=== PATIENT | female | born 1980 | race Caucasian/White ===

== ENCOUNTER → 2020-07-26 | Outpatient (CLI) | payer SELFPAY ==
[2020-07-26 11:16] VITALS: BMI 32.5
== END | disposition home or self-care (01) ==
LOC: LABSPEC 13:24
PROVIDERS: PCP Family Medicine; Referring Provider Obstetrics & Gynecology; Visit Provider Obstetrics & Gynecology
DX: Z12.4 Encounter for screening for malignant neoplasm of cervix (principal)
CPT/HCPCS: 87624; 88175; G0145

== ENCOUNTER → 2020-10-25 13:21 | Outpatient (CLI) | payer SELFPAY ==
[2020-07-26 11:16] VITALS: BMI 32.5
--- NOTE | 2020-10-25 13:28 | BI_ITS ---
MAMMOGRAPHY - BILATERAL SCREENING REASON FOR EXAM: Female, 40 years old. Routine annual screening examination. PERTINENT HISTORY: Grandmother with breast cancer. TECHNIQUE: Digital bilateral breast javier (3D mammographic acquisition) in the CC and MLO projections. 2-D mediolateral oblique (MLO) and craniocaudad (CC) views of both breasts were obtained. CAD: Full Field Digital Mammography with Computer Added Detection was performed. COMPARISON: None. Baseline examination. FINDINGS: Breast Composition: There are scattered areas of fibroglandular density. There are no dominant masses or suspicious calcifications. No other significant abnormalities are identified. BI/SCREEN MAMM (CAD) W/JAVIER BILAT IMPRESSION: Negative screening mammogram. Yearly followup mammogram recommended. (A) ASSESSMENT CATEGORY: BIRADS Category 1: Negative. A letter regarding these results will be sent to the patient by the facility within 30 days. Approximately 10% of breast cancers are not detected by mammography. A normal mammogram should not delay biopsy of a clinically suspicious abnormality. [id number] Electronically Signed: Yomi Lee, at 14:35 EST , Service support ,
== END ==
PROVIDERS: PCP Family Medicine; Referring Provider Obstetrics & Gynecology; Visit Provider Obstetrics & Gynecology
DX: Z12.31 Encounter for screening mammogram for malignant neoplasm of breast (principal)
CPT/HCPCS: 77063; 77067

== ENCOUNTER 2021-12-20 09:07 | Outpatient (CLI) | payer SELFPAY ==
--- NOTE | 2021-12-20 09:12 | BI_ITS ---
MAMMOGRAPHY - BILATERAL SCREENING REASON FOR EXAM: Female, 41 years old. Routine annual screening examination. PERTINENT HISTORY: Grandmother with breast cancer. TECHNIQUE: Digital bilateral breast javier (3D mammographic acquisition) in the CC and MLO projections. 2-D mediolateral oblique (MLO) and craniocaudad (CC) views of both breasts were obtained. CAD: Full Field Digital Mammography with Computer Added Detection was performed. COMPARISON: Comparison is made with prior study dated 10/25/2020. FINDINGS: Breast Composition: There are scattered areas of fibroglandular density. There are no dominant masses or suspicious calcifications. No other significant abnormalities are identified. There has been no significant change since the prior study. BI/SCRN MAMM (CAD)W/JAVIER BILAT IMPRESSION: Stable bilateral screening mammogram. Yearly follow-up mammogram recommended. (A) ASSESSMENT CATEGORY: BIRADS Category 1: Negative. A letter regarding these results will be sent to the patient by the facility within 30 days. Approximately 10% of breast cancers are not detected by mammography. A normal mammogram should not delay biopsy of a clinically suspicious abnormality. [id number] Electronically Signed: Yomi Lee MD at 9:40 EST ,
== END 2021-12-20 23:59 | disposition home or self-care (01) ==
PROVIDERS: PCP Family Medicine; Visit Provider Obstetrics & Gynecology
DX: Z12.31 Encounter for screening mammogram for malignant neoplasm of breast (principal)
CPT/HCPCS: 77063; 77067

== ENCOUNTER → 2025-09-28 | Outpatient (CLI) | payer SELFPAY ==
--- OUTSIDE RECORDS SUMMARY | 2025-09-28 17:48 | XMS RPT_ITS | CCD ---
Author Organization [facility] Care Team Providers Care Manager Media Relations Name Role Phone Michelle Bergeron PA-C Unavailable [phone] Michelle Bergeron PA-C Unavailable [phone] Lashawn DIESEL RETROFIT DESIGNER, Joi Unavailable Can RAMÍREZ, Shadi Rivera Unavailable Eb DIESEL RETROFIT DESIGNER, Kat Unavailable Unavailable Kaleigh Tillman PA-C Unavailable Shayy Wilder Unavailable Unavailable Opllo DIESEL RETROFIT DESIGNER, Raven Unavailable Unavailable Zena Goss PA-C Unavailable Vess DIESEL RETROFIT DESIGNER, Neilee L Unavailable Unavailable Zaugg DIESEL RETROFIT DESIGNER, Domenica Unavailable Unavailable Unavailable Unavailable Yvonne METZGERN, Sheri Rothman Unavailable Unavailab YAZMIN Post DC Attending Unavailable YAZMIN WHARTON DC Primary Care Unavailable YAZMIN WHARTON DC Admitting Unavailable KALEIGH TILLMAN Consulting Unavailable PROVIDER, UNKNOWN Consulting Unavailable Medications Current Medications Medication Drug Class(es) Dates Sig (Normalized) Sig (Original) clotrimazole 10 mg/ml topical cream (1 source) Azole Antifungal Start: 07-14-2024 clotrimazole 1 % topical cream ; 1 (one) Application two times daily for 0 days Quantity: 45 {Gram} Refills: 0 Ordered: 14-Jul-2024 TONY Bergeron Start: 14-Jul-2024 Completed/Discontinued Medications Medication Drug Class(es) Dates Sig (Normalized) Sig (Original) ibuprofen 800 mg oral tablet (2 sources) Nonsteroidal Anti-inflammatory Drug Start: 04-07-2021 End: 04-21-2021 take 1 tablet by mouth three times daily at mealtime Ibuprofen 800 MG Oral Tablet ; 1 (one) Tablet 3 times daily WITH FOOD for 14 days Quantity: 45 {Tablet} Refills: 0 Ordered: 07-Apr-2021 TONY Tillman Start: 07-Apr-2021 End: 21-Apr-2021 Status: Inactive Problems Active Problems Problem Classification Problem Date Documented Da te Episodic/Chronic Administrative/social admission (20 sources) Patient encounter status; Translations: [Other specified counseling] 10-04-2020 Episodic Allergic reactions (2 sources) Contact dermatitis; Translations: [Unspecified contact dermatitis, unspecified cause] 07-14-2024 Episodic Immunizations and screening for infectious disease (4 sources) Exposure to communicable disease; Translations: [Contact with and (suspected) exposure to other viral communicable diseases] 10-04-2020 Episodic Mycoses (2 sources) Candidiasis of skin; Translations: [Candidiasis of skin and nail] 07-14-2024 Episodic Other connective tissue disease (4 sources) Foot pain; Translations: [Pain in left foot] 01-20-2019 Episodic Other connective tissue disease (8 sources) Pain in right foot; Translations: [Pain in right foot] 04-07-2021 Episodic Other inflammatory condition of skin (4 sources) Itching ; Translations: [Pruritus, unspecified] 04-02-2017 Episodic Other injuries and conditions due to external causes (4 sources) Blood blister; Translations: [Other injury of unspecified body region, initial encounter] 10-04-2020 Episodic Other screening for suspected conditions (not mental disorders or infectious disease) (4 sources) Screening status; Translations: [Encounter for screening for diabetes mellitus] 04-02-2017 Episodic Unclassified (2 sources) Non-Contributory Problem List/Past Medical History 01-20-2019 Unclassified (2 sources) Number of Children 11-19-2019 Comment on above: 6. Unclassified (2 sources) Number of Pregnancies 11-19-2019 Comment on above: 6. Unclassified (2 sources) Vaginal deliveries 11-19-2019 Comment on above: 6. Unclassified (2 sources) Well Adult, female - The patient feels well with no complaints, has good energy level and is sleeping well. The current method of contraception is: condom-male (would like to talk about other options). The patient has a balanced diet and takes no supplemental vitamins & iron. The patient exercises none (active lifestyle). The patient sleeps 9 hours per night. 01-20-2019 Past or Other Problems Problem Classification Problem Date Documented Da te Episodic/Chronic Unclassified (1 source) Rash 07-14-2024 Unclassified (2 sources) Foot pain - The pain is in the right foot and is located in the hindfoot and plantar foot (in front of her heel). The onset of the foot pain was sudden following no specific incident and has been occurring in a persistent pattern for 2 weeks. The course has been increasing. The pain is severe. The pain is characterized as a sharp stabbing. The pain is aggravated by physical activity and prolonged rest. The pain has not been relieved by anything. Note for Foot pain: the pain is more severe after prolonged rest, first thing in the morning , or after sitting for an extended length of time. Xrays done prior to appt are negative 04-07-2021 Unclassified (2 sources) Follow up laboratory test results - Lab results returned on : (09/27/20) include other (lipid, cmp, a1c). The patient denies any current symptoms. There is a family history of breast cancer (Paternal Grandmother, maternal grandmother, ovarian cancer) and other condition(s) (both parents are prediabetic), while there is no family history of cardiovascular disease or myocardial infarction before age 55. 10-04-2020 Unclassified (2 sources) tick - Patient is here with complaints of possible retained tick. Daughter noticed it this am and she thought maybe she felt something last night. It's on her right shoulder/neck area. Can see a black spot. No fever or nausea. Doesn't recall scratching area or any trauma. 11-19-2019 Unclassified (2 sources) Foot pain - The pain is in the left foot and is located in the dorsal foot (mid dorsal foot and mid anterior ankle area. ). The onset of the foot pain was sudden following no specific incident and has been occurring in an intermittent pattern for 6 days. The course has been constant. The pain is moderate. The pain is characterized as a sharp stabbing (when touched). The pain is aggravated by prolonged standing. The pain has been relieved by ice. The symptoms have been associated with swelling and pain in ankle (spot on mid anterior ankle). There have been no previous diagnostic tests. There have been no previous evaluations. These has been no previous physical therapy. There have been no previous surgeries. There has been no use of assistive devices. Note for Foot pain: Pt. noted swelling to left toes yesterday and occasional numbness noted to toes also (this has resolved again today). No redness noted. 04-02-2017 Unclassified (2 sources) Itching - The onset of the itching has been acute and has been occurring in an intermittent pattern for 6 weeks. The course has been recurrent. The itching is moderate and occurs all the time (worse at night). The itching is located on the face (neck) and the lower extremities. The symptoms have no aggravating factors. The symptoms have no relieving factors. There has been no associated exposure to poison sabino or jaundice. Note for Itching: Pt. does not see a rash when her skin is itchy. After pt. has been itching affected areas, she notes redness and some small bumps possibly. Pt. has used multiple anti-itch creams otc, with minimal improvement. is concerned that her hormones could be off, that her thyroid is dysfunctional, or that she is iron deficient 09-04-2016 Unclassified (2 sources) Well Adult, female - The patient feels well with no complaints, has good energy level and is sleeping well. The first day of the last menstrual period was : (04/19/2015). The current method of contraception is: condom-male and contraceptive foam. The patient takes no supplemental vitamins & iron. The patient does not exercise. The patient sleeps 9 hours per night. 05-03-2015 Unclassified (1 source) Rash - The onset of the rash has been acute and has been occurring in a persistent pattern for 3 weeks. The course has been decreasing. The rash is characterized as red and flat. The rash was first seen on the trunk (Patient reports that she started with a yeast rash under her breasts and in her groin area. She was treating this with natural remedies when she developed an itchy rash over her abdomen, arms, and legs.). There has been associated itching and erythema, while there has been no associated pain, drainage or edema. There has been no associated chills, fatigue, fever, lymphadenopathy or malaise. Note for Rash: Patient was seen by urgent care and given an oral antifungal medication. She does not feel that this was helpful. She does note that the rash seems to be slowly decreasing. 07-14-2024 Results Test Name Value Interpretation Reference Range Facility Reverse Unit Operator Fisherman Office Visit Reporton 12-20-2021 Reverse Unit Operator Fisherman Office Visit Report [facility] 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) Allergies No Known Allergies Allergy (Verified 12/20/21 09:47) Medications copper 380 square mm intrauterine device 1 device INTRAUTERINE ONCE 07/18/19 [History Confirmed 12/20/21] Is last menstrual period known: Yes Last Menstral Period: 12/12/21 [facility] Surgical History History of wisdom tooth extraction, class II edentulism Social History Smoking Status: Never smoker alcohol intake: never substance use type: does not use caffeine: Yes what type of physical activity do you participate in: none seatbelt use: always do you feel safe at home: Yes additional social history: [employer]- 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 Date Name GA/Weeks Outcome Route Bth Weight Gen Labor Lgth Anesthesia Del Locatn Provider FOB Unknown 1998 Gail live - full term none Unknown 2000 Haylee live - full term none Unknown 2001 Pranay live - full term none Unknown 2004 Esmer live - full term none Unknown 2008 Rosa live - full term none Unknown 2010 Theo live - full term none HPI Encounter for routine gynecological examination: Details: SRUTHI WHITTINGTON is a 41 year old who presents for annual exam. Denies concerns Last PAP: 2020 History of abnormal PAP: no Last mammogram: today History of abnormal mammogram: no Colon cancer screening: age 48 Other preventative health care screenings: Kimberly Tillman Details: SRUTHI WHITTINGTON is a 41 year old who presents for annual exam. Last PAP: [] History of abnormal PAP: [] Last mammogram: [] History of abnormal mammogram: [] Colon cancer screening: [] Other preventative health care screenings: [] Female Reproductive History Last Menstral Period: 12/12/21 Cycle Length: 21-35 Control Method: paragard IUD Questions: metorrhagia: No, sexually active: Yes, dyspareunia: No and PCB: No ROS Const Constitutional: Denies fatigue, weight gain or weight loss Cardio Card: Denies chest pain Resp Resp: Denies cough or dyspnea on exertion GI GI: Denies abdominal pain, bloating, change in stool character, constipation or vomiting : Reports as per HPI; Denies difficulty voiding, pelvic pain, urinary frequency, urinary incontinence, urinary urgency, vaginal discharge or vaginal pruritus Exam Const General: cooperative, healthy appearing, no acute distress and well developed Orientation: alert, oriented to person and oriented to place HENCA Head: normal to inspection Neck Neck: normal visual inspection Thyroid: thyroid normal Lymphatic: no lymphadenopathy noted Chest Breast inspection: normal inspection of the breasts and normal inspection of the axillae Breast palpation: normal palpation of the breasts, normal palpation of the axillae and no axillary lymphadenopathy Resp Effort Inspection: normal respiratory effort GI Palpation: soft, no masses and nontender Rectal Exam: deferred External Female Exam: normal external appearance and normal appearance of the urethra Urethra: normal appearance of the urethra and normal palpation Speculum Exam - Vagina: normal appearance of the vagina and normal vaginal discharge Speculum Exam - Cervix: normal appearance of the cervix (strings at os) Bimanual Exam- Vagina Uterus: normal bimanual exam, uterine size normal, uterine shape normal and non-tender Bimanual Exam- Adnexa, other: normal adnexae, no masses, normal and non-tender Pelvic Support: normal Neuro General: patient alert and patient oriented x3 Psych Affect: normal affect Coding Level of Care Code Off vis,est,prev 40-64yrs Diagnoses Encounter for routine gynecological examination Z01.419 Assessment and Plan Assessment and Plan (1) Encounter for routine gynecological examination: Plan - Autumn Benjamin NP, EVENT SET UP SPECIALIST-C: Completed breast and pelvic exam Reviewed diet and exercise Pap 2020 Mammogram today, WNL breast self exam encouraged monthly Contraception paragard IUD Colonoscopy age 48 RTO (more content not included)... Normal [facility] SCRN MAMM (CAD)W/JAVIER BILATo n 12-20-2021 SCRN MAMM (CAD)W/JAVIER BILAT [facility] Imaging Services [address] [place] [address] SCRN MAMM (CAD)W/JAVIER BILAT MR#: [id number] Acct: [id number] Name: SRUTHI WHITTINGTON Rep #: [id number] : 1980 F 41 From: Yomi up MD PCP: Kaleigh Tillman PA-C Status: REG CLI Study: SCRN MAMM (CAD)W/JAVIER BILAT Date of Exam: 11/12 Exam# [id number] Ordering Dr: Autumn Benjamin NP EVENT SET UP SPECIALIST -C MAMMOGRAPHY - BILATERAL SCREENING REASON FOR EXAM: Female, 41 years old. Routine annual screening examination. PERTINENT HISTORY: Grandmother with breast cancer. TECHNIQUE: Digital bilateral breast javier (3D mammographic acquisition) in the CC and MLO projections. 2-D mediolateral oblique (MLO) and craniocaudad (CC) views of both breasts were obtained. CAD: Full Field Digital Mammography with Computer Added Detection was performed. COMPARISON: Comparison is made with prior study dated 10/25/2020. FINDINGS: Breast Composition: There are scattered areas of fibroglandular density. There are no dominant masses or suspicious calcifications. No other significant abnormalities are identified. There has been no significant change since the prior study. BI/SCRN MAMM (CAD)W/JAVIER BILAT IMPRESSION: Stable bilateral screening mammogram. Yearly follow-up mammogram recommended. (A) ASSESSMENT CATEGORY: BIRADS Category 1: Negative. A letter regarding these results will be sent to the patient by the facility within 30 days. Approximately 10% of breast cancers are not detected by mammography. A normal mammogram should not delay biopsy of a clinically suspicious abnormality. [id number] Electronically Signed: Yomi Lee MD at 9:40 EST , CC: EDUARDO Benjamin; TONY Tillman [employer]ation Worker: Signed Normal [facility] Hemoglobin A1con 09-28-2020 HbA1c (Bld) [Mass fraction] 5.5 % Normal 4.3-5.6 [facility] Reference Lab Comment on above: Performed By: #### Joan BA1C #### [facility] Routine Lab [address], [place] [id number] HbA1c (Bld) [Mass fraction] 111 mg/dL Normal [facility] Reference Lab Comment on above: Performed By: #### H BA1C #### [facility] Routine Lab [address], [place] [id number] Laboratory - Chemistry and C hemistry - challengeon 09-27-2020 Albumin [Mass/Vol] 3.8 g/dL Normal 3.4 - 5.0 g/dL [facility].; [facility] Albumin [Mass/Vol] 1.1 g/dL Normal 0.9 - 1.6 [facility], [facility].; [facility] [facility] ALP [Catalytic activity/Vol] 52 U/L Normal 46 - 116 U/L [facility], [facility].; [place] [employer] [facility] ALT [Catalytic activity/Vol] 22 U/L Normal 14 - 59 U/L [facility], [facility].; [place] [employer] [facility] [facility] Anion gap [Moles/Vol] 11 mmol/L Normal 10 - 20 mmol/L [facility]; [facility] AST [Catalytic activity/Vol] 12 U/L Abnormal 13 - 39 U/L [facility]; [facility], [facility] Bilirubin [Mass/Vol] 1.4 mg/dL Abnormal 0.2 - 1 .0 mg/dL [facility]; [facility], [facility] Calcium [Mass/Vol] 9.0 mg/dL Normal 8.5 - 10. 1 mg/dL [facility]; [facility], [facility] Chloride [Moles/Vol] 103 mmol/L Normal 98 - 10 7 mmol/L [facility]; [facility], [facility] Cholesterol [Mass/Vol] 206 mg/dL Normal 0 - 240 mg/dL [facility]; [facility], [facility] Cholesterol in HDL [Mass or moles/Vol] 55 mg/dL Normal 40 - 60 mg/dL [facility]; [facility], [facility] Cholesterol in LDL [Mass/Vol] 134 mg/dL Abnormal 0 - 129 mg/dL [facility]; [facility], [facility] Cholesterol.total/Chol esterol in HDL [Mass ratio] 3.7 {ratio} Normal 0.0 - 5.0 [facility]; [facility], [facility] CO2 [Moles/Vol] 25.8 mmol/L Normal 21.0 - 32.0 mmol/L [facility]; [facility], [facility]. Comprehensive metabolic 2000 panel CMP with eGFR Normal [facility]; [facility], [facility] Creatinine [Mass/Vol] 0.7 mg/dL Normal 0.5 - 1.0 mg/dL [facility]; [facility], [facility]. GFR/1.73 sq M.predicted among blacks MDRD (S/P/Bld) [Vol rate/Area] mL/min/{1.73_m2} Normal 60 - 999 {ML/MINUTE} [facility].; [facility], [facility] GFR/1.73 sq M.predicted MDRD (S/P/Bld) [Vol rate/Area] mL/min/{1.73_m2} Normal 60 - 999 {ML/MINUTE} [facility]; [facility] Globulin (S) [Mass/Vol] 3.4 g/dL Normal 1.5 - 3.8 g/dL [facility]; [facility], [facility] Glucose [Mass/Vol] 98 mg/dL Normal 74 - 106 mg/dL [facility]; [facility] Glucose [Mass/Vol] 111 mg/dL Normal [facility]; [facility] Lipid 1996 panel LIPID PROFILE Normal [facility]; [facility] Potassium [Moles/Vol] 3.7 mmol/L Normal 3.5 - 5.1 mmol/L [facility]; [facility], [facility] Protein [Mass/Vol] 7.2 g/dL Normal 6.4 - 8.2 g/dL [facility]; [facility], [facility] Sodium [Moles/Vol] 136 mmol/L Normal 136 - 145 mmol/L [facility]; [facility] Triglyceride [Mass/Vol] 85 mg/dL Normal 0 - 150 mg/dL [facility]; [facility] Urea nitrogen [Mass/Vol] 10 mg/dL Normal 7 - 18 mg/dL [facility]; [place] [facility] Urea nitrogen/Creatinine [Mass ratio] 14 {ratio} Normal 0 - 30 {ratio} [facility]; [facility] Laboratory - Hematology and Cell countson 09-27-2020 HbA1c (Bld) [Mass fraction] 5.5 % Normal 4.3 - 5.6 % [facility]; [place] [facility] No Panel Informationon 09-27 AGE 40 {years} Normal [facility]; [place] [facility] Laboratory - Microbiology an d Antimicrobial susceptibilityon 05-12-2020 SARS-CoV-2 (COVID-19) RNA ALEXIS+probe Ql (Unsp spec) Negative Normal [facility]; [employer] Laboratory - Cytologyon 04- Microscopic observation Cyto stain Nom (Cvx) SEE NOTE Normal [facility] [employer], [place]. Laboratory - Chemistry and C hemistry - challengeon 01-13-2019 Albumin [Mass/Vol] 4.3 g/dL Normal 3.6 - 5.1 g/dL [facility] [employer] [employer] [employer] Albumin/Globulin [Mass ratio] 1.7 {ratio} Normal 1.0 - 2.5 [place] [employer] ALP [Catalytic activity/Vol] 46 U/L Normal 33 - 115 U/L [place] [employer].; [employer], [place]. ALT [Catalytic activity/Vol] 14 U/L Normal 6 - 29 U/L [employer].; [employer], [place]. AST [Catalytic activity/Vol] 13 U/L Normal 10 - 30 U/L [employer].; [facility]. Bilirubin [Mass/Vol] 1.1 mg/dL Normal 0.2 - 1 .2 mg/dL [employer].; [employer], [place]. Calcium [Mass/Vol] 9.2 mg/dL Normal 8.6 - 10. 2 mg/dL [facility].; [employer], [place]. Chloride [Moles/Vol] 103 mmol/L Normal 98 - 11 0 mmol/L [place] [employer], [employer].; [employer], [place]. Cholesterol [Mass/Vol] 229 mg/dL Abnormal [facility] [employer] [employer] Cholesterol in HDL [Mass/Vol] 63 mg/dL Normal [facility] [employer], [place]. Cholesterol in LDL [Mass/Vol] 142 mg/dL Abnormal 0 - 100 mg/dL [facility].; [employer], [place]. Cholesterol non HDL [Mass/Vol] 166 mg/dL Abnormal [facility].; [employer] [employer] Cholesterol.total/Chol esterol in HDL [Mass ratio] 3.6 {ratio} Normal [employer], [employer].; [employer] [employer] CO2 [Moles/Vol] 27 mmol/L Normal 20 - 32 mmol/L [facility].; [facility], [facility] Creatinine [Mass/Vol] 0.77 mg/dL Normal 0.50 - 1.10 mg/dL [facility].; [facility], [facility]. GFR/1.73 sq M.predicted among blacks MDRD (S/P/Bld) [Vol rate/Area] 112 {ML/MIN/1.73M2} Normal [facility].; [facility], [facility] GFR/1.73 sq M.predicted MDRD (S/P/Bld) [Vol rate/Area] 97 {ML/MIN/1.73M2} Normal [facility]; [facility], [facility] Globulin (S) [Mass/Vol] 2.5 g/dL Normal 1.9 - 3.7 g/dL [facility].; [facility], [facility]. Glucose [Mass/Vol] 105 mg/dL Abnormal 65 - 99 mg/dL [facility].; [facility], [facility]. Potassium [Moles/Vol] 4.3 mmol/L Normal 3.5 - 5.3 mmol/L [facility]; [facility], [facility] Protein [Mass/Vol] 6.8 g/dL Normal 6.1 - 8.1 g/dL [facility]; [facility], [facility] Sodium [Moles/Vol] 136 mmol/L Normal 135 - 146 mmol/L [facility].; [facility], [facility]. Triglyceride [Mass/Vol] 118 mg/dL Normal [facility].; [facility], [facility]. Urea nitrogen [Mass/Vol] 9 mg/dL Normal 7 - 25 mg/dL [facility]; [facility], [facility] Urea nitrogen/Creatinine [Mass ratio] 11.4 mg/mg Normal 6 - 22 [facility]; [facility], [facility]. Laboratory - Chemistry and C hemistry - challengeon 05-03-2015 Glucose Glucometer (BldC) [Moles/Vol] 96 Normal 60 - 120 [facility]; [facility] Laboratory - Cytologyon 04-21 Microscopic observation Cyto stain Nom (Cvx) Normal [facility].; [facility], [facility] Vital Signs Date Time Vital Sign Value Performing Clinician Facility 07-14-2024 10:53-0400 Body height 162.56 cm Sheri Russell [facility]; [facility] 07-14-2024 10:53-0400 Body mass index (BMI) [Ratio] 31.75 kg/m2 Sheri Russell [facility]; [facility] 07-14-2024 10:53-0400 Body surface area Derived from formula 1.[address] [facility] Yvonne [facility] 07-14-2024 10:53-0400 Body weight 83.92 kg Sheri Russell [facility].; [facility] 07-14-2024 10:53-0400 Diastolic blood pressure 84 mm[Hg] Sheri Russell [facility].; [facility], [facility]. Comment on above: Patient Position: Si tting; Cuff Location: Left Arm; Cuff Size: Large 07-14-2024 10:53-0400 Heart rate 78 /min Kaykay Stuckey [facility]; [facility], [facility]. Comment on above: Pattern: Regular 07-14-2024 10:53-0400 Systolic blood pressure 122 mm[Hg] Sheri Russell [facility].; [facility], [facility]. Comment on above: Patient Position: Si tting; Cuff Location: Left Arm; Cuff Size: Large 04-07-2021 08:51-0400 Body height 162.56 cm Antonella Reynolds [employer] [facility], [facility].; [facility], [facility]. 04-07-2021 08:51-0400 Body mass index (BMI) [Ratio] 31.41 kg/m2 Antonella Reynolds [facility], [facility].; [facility], [facility]. 04-07-2021 08:51-0400 Body surface area Derived from formula 1.88 m2 Neilee L Vess [employer] [facility] [employer] [facility], [facility]. 04-07-2021 08:51-0400 Body weight 83.01 kg Marielamaynore Delma Vess [employer] [facility], [facility].; [email or web address] 04-07-2021 08:51-0400 Diastolic blood pressure 80 mm[Hg] Neilee L Vess [employer] [facility] [employer] Comment on above: Patient Position: Si tting; Cuff Location: Right Arm; Cuff Size: Standard 04-07-2021 08:51-0400 Heart rate 108 /min Ohilee L Vess [employer] [facility] [employer] Comment on above: Pattern: Regular 04-07-2021 08:51-0400 Systolic blood pressure 129 mm[Hg] Neilee L Vess [employer] [facility] [employer] Comment on above: Patient Position: Si tting; Cuff Location: Right Arm; Cuff Size: Standard 10-04-2020 09:23-0500 Body height 162.56 cm Raven Abad LPN [facility], [facility].; [employer] [facility], [facility]. 10-04-2020 09:23-0500 Body mass index (BMI) [Ratio] 29.7 kg/m2 Raven Abad LPN [facility], [facility].; [email or web address], [facility]. 10-04-2020 09:23-0500 Body surface area Derived from formula 1.84 m2 Raven Abad LPN [facility], [facility].; [employer] [facility], [facility]. 10-04-2020 09:23-0500 Body weight 78.47 kg Raven Abad LPN [facility], [facility].; [employer], [facility]. 10-04-2020 09:23-0500 Diastolic blood pressure 83 mm[Hg] Raven Abad LPN [employer] [facility], [facility].; [employer]. Comment on above: Patient Position: Si tting; Cuff Location: Left Arm; Cuff Size: Standard 10-04-2020 09:23-0500 Heart rate 73 /min Raven Abad LPN [employer] [facility], [facility].; [employer] Comment on above: Pattern: Regular 10-04-2020 09:23-0500 Systolic blood pressure 119 mm[Hg] Raven Abad LPN [employer]. Comment on above: Patient Position: Si tting; Cuff Location: Left Arm; Cuff Size: Standard 11-19-2019 11:17-0500 Body height 162.56 cm Michelle Bergeron PA-C Work Phone: [employer]; [employer]. 11-19-2019 11:17-0500 Body mass index (BMI) [Ratio] 30.38 kg/m2 Michelle Bergeron PA-C Work Phone: [employer]; [employer]. 11-19-2019 11:17-0500 Body surface area Derived from formula 1.86 m2 Michelle Bergeron PA-C Work Phone: [employer]; [employer]. 11-19-2019 11:17-0500 Body weight 80.29 kg Michelle Bergeron PA-C Work Phone: [employer]; [employer] 11-19-2019 11:17-0500 Diastolic blood pressure 76 mm[Hg] Michelle Bergeron PA-C Work Phone: [employer]; [employer] Comment on above: Patient Position: Si tting; Cuff Location: Left Arm; Cuff Size: Standard 11-19-2019 11:17-0500 Heart rate 82 /min Michelle Bergeron PA-C Work Phone: [employer]; [employer] Comment on above: Pattern: Regular 11-19-2019 11:17-0500 Systolic blood pressure 119 mm[Hg] Michelle Bergeron PA-C Work Phone: [employer]; [employer] Comment on above: Patient Position: Si tting; Cuff Location: Left Arm; Cuff Size: Standard 01-20-2019 09:29-0400 Body height 162.56 cm Michelle Bergeron PA-C Work Phone: [employer]; [employer] 01-20-2019 09:29-0400 Body mass index (BMI) [Ratio] 30.66 kg/m2 Michelle Bergeron PA-C Work Phone: [employer]; [employer] 01-20-2019 09:29-0400 Body surface area Derived from formula 1.86 m2 Michelle Bergeron PA-C Work Phone: [employer]; [employer] 01-20-2019 09:29-0400 Body temperature 98.1 [degF] Michelle Bergeron PA-C Work Phone: [employer]; [employer] Comment on above: Method: Tympanic 01-20-2019 09:29-0400 Body weight 81.01 kg Michelle Bergeron PA-C Work Phone: [employer]; [employer] 01-20-2019 09:29-0400 Diastolic blood pressure 84 mm[Hg] Michelle Bergeron PA-C Work Phone: [employer]; [employer] Comment on above: Patient Position: Si tting; Cuff Location: Left Arm; Cuff Size: Standard 01-20-2019 09:29-0400 Heart rate 89 /min Michelle Bergeron PA-C Work Phone: [employer]; [employer] Comment on above: Pattern: Regular 01-20-2019 09:29-0400 Systolic blood pressure 132 mm[Hg] Michelle Bergeron PA-C Work Phone: [employer]; [employer] Comment on above: Patient Position: Si tting; Cuff Location: Left Arm; Cuff Size: Standard 04-02-2017 11:31-0400 Body height 162.56 cm Michelle Bergeron PA-C Work Phone: [employer]; [employer] 04-02-2017 11:31-0400 Body mass index (BMI) [Ratio] 30.71 kg/m2 Michelle Bergeron PA-C Work Phone: [employer]; [employer] 04-02-2017 11:31-0400 Body surface area Derived from formula 1.87 m2 Michelle Bergeron PA-C Work Phone: [employer]; [employer] 04-02-2017 11:31-0400 Body temperature 98 [degF] Michelle Bergeron PA-C Work Phone: [employer]; [employer] Comment on above: Method: Tympanic 04-02-2017 11:31-0400 Body weight 81.15 kg Michelle Bergeron PA-C Work Phone: [employer]; [employer] 04-02-2017 11:31-0400 Diastolic blood pressure 88 mm[Hg] Michelle Bergeron PA-C Work Phone: [employer]; [employer] Comment on above: Patient Position: Si tting; Cuff Location: Left Arm; Cuff Size: Standard 04-02-2017 11:31-0400 Heart rate 86 /min Michelle Bergeron PA-C Work Phone: [employer]; [employer] Comment on above: Pattern: Regular 04-02-2017 11:31-0400 Systolic blood pressure 124 mm[Hg] Michelle Bergeron PA-C Work Phone: [employer]; [employer] Comment on above: Patient Position: Si tting; Cuff Location: Left Arm; Cuff Size: Standard 09-04-2016 14:02-0500 Body height 162.56 cm Michelle Bergeron PA-C Work Phone: [employer]; [employer] 09-04-2016 14:02-0500 Body mass index (BMI) [Ratio] 29.49 kg/m2 Michelle Bergeron PA-C Work Phone: [employer]; [employer] 09-04-2016 14:02-0500 Body surface area Derived from formula 1.83 m2 Michelle Bergeron PA-C Work Phone: [employer]; [employer] 09-04-2016 14:02-0500 Body temperature 97.1 [degF] Michelle Bergeron PA-C Work Phone: [employer]; [employer] Comment on above: Method: Tympanic 09-04-2016 14:02-0500 Body weight 77.93 kg Michelle Bergeron PA-C Work Phone: [employer]; [employer] 09-04-2016 14:02-0500 Diastolic blood pressure 86 mm[Hg] Michelle Bergeron PA-C Work Phone: [employer]; [employer] Comment on above: Patient Position: Si tting; Cuff Location: Left Arm; Cuff Size: Standard 09-04-2016 14:02-0500 Heart rate 81 /min Michelle Bergeron PA-C Work Phone: [employer]; [employer] Comment on above: Pattern: Regular 09-04-2016 14:02-0500 Systolic blood pressure 134 mm[Hg] Michelle Bergeron PA-C Work Phone: [employer]; [employer] Comment on above: Patient Position: Si tting; Cuff Location: Left Arm; Cuff Size: Standard 05-03-2015 10:16-0400 Body height 162.56 cm Antonella Reynolds LPN [facility].; [employer] 05-03-2015 10:16-0400 Body mass index (BMI) [Ratio] 28.15 kg/m2 Antonella Reynolds LPN [employer].; [employer] 05-03-2015 10:16-0400 Body surface area Derived from formula 1.8 m2 Macye Delma Vess [employer], [employer] 05-03-2015 10:16-0400 Body weight 74.39 kg Macye Delma Vess [employer] 05-03-2015 10:16-0400 Diastolic blood pressure 85 mm[Hg] Marielailee Delma Vess [employer].; [employer] Comment on above: Patient Position: Si tting; Cuff Location: Left Arm; Cuff Size: Standard 05-03-2015 10:16-0400 Heart rate 74 /min Macye Delma Vess [employer].; [employer] Comment on above: Pattern: Regular 05-03-2015 10:16-0400 Systolic blood pressure 129 mm[Hg] Macye L Vess [employer].; [employer] Comment on above: Patient Position: Si tting; Cuff Location: Left Arm; Cuff Size: Standard Encounters Encounter Date Encounter Type Care Provider Facility Start: 01-20-2025 End: 01-20-2025 ambulatory YAZMIN AMBREEN [facility] Start: 07-14-2024 End: 07-14-2024 Office outpatient new 30 minutes Michelle Bergeron PA-C Work Phone: [employer] Start: 07-14-2024 Review Michelle Bergeron P A-C Work Phone: [employer] Start: 04-07-2021 End: 04-07-2021 Office outpatient visit 15 minutes Michelle Bergeron PA-C Work Phone: [employer] Start: 04-05-2021 End: 04-05-2021 Orders Michelle Bergeron PA-C Work Phone: [employer] Start: 10-04-2020 End: 09-30-2020 Historical Summary Michelle Bergeron PA-C Work Phone: [employer] Start: 10-04-2020 End: 10-04-2020 Office outpatient visit 10 minutes Michelle Bergeron PA-C Work Phone: [employer] Start: 09-27-2020 End: 09-27-2020 Orders Michelle Bergeron PA-C Work Phone: [employer] Start: 09-23-2020 End: 09-23-2020 Orders Michelle Bergeron PA-C Work Phone: [employer] Start: 05-10-2020 End: 05-10-2020 Orders Michelle Bergeron PA-C Work Phone: [employer] Start: 11-19-2019 End: 11-19-2019 Office outpatient visit 10 minutes Michelle Bergeron PA-C Work Phone: [employer] Start: 01-20-2019 End: 01-20-2019 Patient encounter procedure Michelle Bergeron PA-C Work Phone: [employer] Start: 01-13-2019 End: 01-13-2019 Orders Michelle Bergeron PA-C Work Phone: [employer] Start: 01-02-2019 End: 01-04-2019 Orders Michelle Bergeron PA-C Work Phone: [employer] Start: 01-01-2019 End: 01-01-2019 Historical Summary Michelle Bergeron PA-C Work Phone: [employer] Start: 04-02-2017 End: 04-02-2017 Patient encounter procedure Michelle Bergeron PA-C Work Phone: [employer] Start: 09-04-2016 End: 09-04-2016 Patient encounter procedure Michelle Bergeron PA-C Work Phone: [employer] Start: 05-03-2015 End: 05-03-2015 Manual pelvic examination Michelle Bergeron PA-C Work Phone: [employer]; [employer] Start: 05-03-2015 End: 05-03-2015 Patient encounter procedure Michelle Bergeron PA-C Work Phone: [facility] Start: 03-31-2015 End: 03-31-2015 Historical Summary Michelle Bergeron PA-C Work Phone: [employer] Manual pelvic examination Susanna Guevara Lowell PA-C Work Phone: [employer].; [employer] Patient encounter procedure Kaleigh Tillman PA-C Work Phone: [employer].; [employer] Procedures Date Procedure Procedure Detail Performing Clinician Start: 04-05-2021 End: 04-07-2021 Radex foot complete minimum 3 views Kaleigh Guevara Primo PA-C Work Phone: Start: 09-27-2020 End: 09-27-2020 Hemoglobin A1c/Hemoglobin.total in Blood Sheri Russell [employer] Comment on above: 5.5 Start: 09-27-2020 End: 09-27-2020 Lab findings surveillance Sheri Clement sands [employer] Comment on above: 98 Start: 09-27-2020 End: 09-27-2020 Lipid panel Sheri Russell LP N Comment on above: Abnormal. tc 206 tri g 85 hdl 55 ldl 134 Start: 01-20-2019 End: 01-20-2019 Depression screening Kaleigh Paola Tillman PA -C Work Phone: Start: 01-20-2019 End: 01-20-2019 Scr dep neg, no plan reqd Kaleigh Guevara Jamilah diaz PA-C Work Phone: Start: 04-02-2017 End: 03-17-2020 Radex foot complete minimum 3 views Kaleigh D Primo PA-C Work Phone: Start: 05-03-2015 End: 05-03-2015 Microscopic examination of cervical Papanicolaou smear Sheri Russell [employer] Comment on above: Normal. 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 [employer]; [employer] Caffeine Use Caffeine Use [employer]; [employer] Exercise History: Exercise History: ; Lig ht. [employer]; [employer] Tobacco Use: Tobacco Use: ; Never smoker. [employer]; [employer] Female [employer]; [employer] Work Phone: Occasional alcohol use [employer]; [employer] Work Phone: Never smoked tobacco [employer]; [employer] Work Phone: Summary Purpose Family History No Family History Records Found Breast Cancer Status:Active Comments:Paterna l Grandmother. Diabetes Mellitus Type II Status:Active Commen ts:Mother. Father. pre-diabetes Ovarian Cancer Status:Active Comments:Materna l Grandmother. Breast Cancer Status:Active Comments:Paterna l Grandmother. Diabetes Mellitus Type II Status:Active Commen ts:Mother. Father. pre-diabetes Ovarian Cancer Status:Active Comments:Materna l Grandmother. Advance Directives No Advanced Directives Records FoundNo Advanced Directives Records FoundNo Advanced Directives Records Found Additional Source Comments INFORMATION SOURCE (unrecogn ized section and content) DATE CREATED AUTHOR 09/29/2020 [facility] DATE CREATED AUTHOR AUTHOR'S ORGANIZ ATION 01/21/2022 [facility] DATE CREATED AUTHOR AUTHOR'S ORGANIZ ATION 01/21/2025 [facility] FOR RECORDS PERTAINING TO PATIENTS WHO ARE OR HAVE BEEN ENROLLED IN A CHEMICAL DEPENDENCY/SUBSTANCEABUSE PROGRAM, SOME INFORMATION MAY BE OMITTED. This clinical summary was aggregated from multiple sources. Caution should be exercised in using it in the provision of clinical care. This summary normalizes information from multiple sources, and as a consequence, information in this document may materially change the coding, format and clinical context of patient data. In addition, data may be omitted in some cases. CLINICAL DECISIONS SHOULD BE BASED ON THE PRIMARY CLINICAL RECORDS. [facility] [employer] provides no warranty or guarantee of the accuracy or completeness of information in this document.
[2025-10-08 17:08] LABS: HPV APTIMA, High Risk Negative (Negative)
== END | disposition home or self-care (01) ==
LOC: LABSPEC 16:07
PROVIDERS: PCP Family Medicine; Referring Provider Nurse Practitioner Family; Visit Provider Nurse Practitioner Family
DX: Z12.4 Encounter for screening for malignant neoplasm of cervix (principal)
CPT/HCPCS: 87624; 88175; G0145